=== PATIENT | male | born 1990 | race African-American/Black ===

== ENCOUNTER 2024-02-10 10:47 | Emergency (ER) | payer MEDICAID ==
[~2024-02-10] VITALS: Ht 185.4 cm; Wt 127.0 kg
[2024-02-10 10:49] VITALS: PULSE 100
[2024-02-10 10:53] VITALS: BP 168/90; TEMP 98.4; O2SAT 99
[2024-02-10] MEDS: IBUPROFEN 600MG TABLET PO STA (12:00)
[2024-02-10] MEDS: CEFTRIAXONE SODIUM 500MG VIAL IM ONE (12:00)
[2024-02-10 12:13] LABS: CLARITY URINE CLEAR (CLEAR); COLOR URINE DARK YELLOW (YELLOW); GLUCOSE URINE NEGATIVE (NEGATIVE); KETONES URINE NEGATIVE (NEGATIVE); LEUKOCYTE ESTERASE URINE NEGATIVE (NEGATIVE); NITRITE URINE NEGATIVE (NEGATIVE); OCCULT BLOOD URINE NEGATIVE (NEGATIVE); PROTEIN URINE 1+ (NEGATIVE); SPECIFIC GRAVITY URINE 1.035 (1.005-1.030)
[2024-02-10 12:29] LABS: MUCUS URINE 3+ /lpf (NONE/TRACE)
[2024-02-10 12:41] LABS: SQUAMOUS EPITHELIAL CELL URINE RARE /lpf (RARE/1+)
[2024-02-10 12:44] LABS: BACTERIA URINE TRACE; RBC URINE NONE SEEN /hpf (0-2)
[2024-02-10 12:50] VITALS: RESP 18
[2024-02-10] MEDS ORDERED: DOXY100C5 MT (12:51)
[2024-02-14 17:11] LABS: CHLAMYDIA TRACHOMATIS NAA Negative (Negative); NEISSERIA GONORRHOEAE NAA Negative (Negative)
== END 2024-02-10 12:50 | disposition home or self-care (01) ==
LOC: ER 10:47
DX: N50.82 Scrotal pain (principal)
CPT/HCPCS: 99283; 87491; 87591; 81003; 96372; J0696